=== PATIENT | male | born 1955 | race Caucasian/White ===

== ENCOUNTER → 2019-01-06 | Outpatient (CLI) | payer OTHER ==
--- NOTE | 2019-01-06 14:56 | CTL ---
EXAMINATION TYPE: CT Low Dose Lung DATE OF EXAM ORDERED: 01/06/2019 HISTORY: . Lung cancer screening CT DLP: 99.[address] CTDI: 2.8 mGy Automated exposure control for dose reduction was used. SCREENING VISIT: Initial COMPARISON: None TECHNIQUE: Low dose computed tomography scan was performed through the chest at 1 mm thick sections a nd reconstructed images in the coronal plane at [address] DIAGNOSTIC QUALITY: Satisfactory FINDINGS: LUNG NODULES: Present, detailed below: There is some distortion and spiculation within the right midlung. This appears to be associated with vascular structures may be accentuated with some adjacent emphysematous change. Underlying mass is c onsidered less likely. Series 4 image 102. No additional suspicious areas are evident. LUNGS: COPD: Severity: None Fibrosis: Severity: None Lymph nodes: None Other findings: None RIGHT PLEURAL SPACE: Effusion: None Calcification: None Thickening: None Pneumothorax: None LEFT PLEURAL SPACE: Effusion: None Calcification: None Thickening: None Pneumothorax: None HEART: Heart Size: Normal Coronary calcification: Mild Pericardial effusion: None OTHER FINDINGS: Upper abdomen: Unremarkable Bony thorax: Unremarkable Supraclavicular region: Normal Other: Ascending thoracic aorta at the level the main pulmonary artery is 4.0 cm. The main pulmonary artery bifurcation is 2.5 cm. IMPRESSION: 1. Probably benign findings right midlung. Precautionary follow-up in [address] chest is r ecommended with contrast. FOLLOW UP CT CHEST RECOMMENDATION: Follow-up standard CT chest with contrast in [address] LUNG RAD: Lung-Rad 3 Probably Benign
== END | disposition home or self-care (01) ==
LOC: RADCTMAIN 08:12
PROVIDERS: ATTEND Physician Assistant Medical
DX: Z12.2 Encounter for screening for malignant neoplasm of respiratory organs (principal); F17.210 Nicotine dependence, cigarettes, uncomplicated

== ENCOUNTER → 2019-07-11 | Outpatient (CLI) | payer OTHER ==
[2019-07-11 09:19] LABS: African American GFR (CKD) >90 (>60 ml/min/1.73 sqM); Blood Urea Nitrogen 16 mg/dL (9-20)
--- NOTE | 2019-07-11 10:40 | CT ---
EXAMINATION TYPE: CT chest w con DATE OF EXAM: 07/11/2019 COMPARISON: 01/06/2019 HISTORY: 63-year-old male Prior abnormal low dose scan, prostate CA TECHNIQUE: Contiguous axial scanning of the chest after the administration of 100 mL of Isovue 300. Coronal/sagittal reconstructions performed. CT DLP: 532mGycm. Automatic exposure control utilized for a dose reduction. FINDINGS: Heart normal size without pericardial effusion. Scattered mild coronary vascular calcifications are p resent. Aorta normal caliber with conventional arch vessel branching anatomy. No thoracic lymphadenopathy by CT size criteria. There is mild centrilobular emphysema with numerous scattered 5 mm and smaller bilateral pulmonary no dules, all unchanged from 01/06/2019 compatible with a benign etiology. Focal irregular patchy density peripheral right midlung, axial image 26 also remains unchanged. Small hiatal hernia. Visualized upper abdomen shows a few scattered hypodense lesions within the live r, stable from 6 months ago suggestive of cysts. Bones: Mild degenerative disc disease mid to lower thoracic spine. IMPRESSION: 1. Focal irregular patch of density in the right midlung remains unchanged for 6 month suggesting a b enign etiology such as scarring. An additional precautionary 6-9 month follow-up can be performed. If the finding remains stable at that time, patient can return to routine annual screening. 2. Numerous bilateral 5 mm and smaller pulmonary nodules are all unchanged for 6 months compatible wi th a benign etiology. 3. COPD with mild emphysema.
== END | disposition home or self-care (01) ==
LOC: RADCTMAIN 08:37
PROVIDERS: ATTEND Physician Assistant Medical
DX: J98.4 Other disorders of lung (principal); J43.9 Emphysema, unspecified; C61 Malignant neoplasm of prostate
CPT/HCPCS: 82565; 84520; 71260; 36415; Q9967